=== PATIENT | male | born 1960 | race Caucasian/White ===

== ENCOUNTER 2017-11-14 20:41 | Emergency (ER) | payer BC ==
--- NOTE | 2017-11-14 20:49 | PDOC ---
History of Present Illness - General History Source: Patient Exam Limitations: No Limitations - History of Present Illness Initial Comments: A portion of this note was documented by scribe services under my direction. I have reviewed the details of the note, within reason, and agree with the documentation. The case summary and management plan written by me. Assessment and plan: This is a 57-year-old male who comes in complaining of frontal sinus headache. On evaluation was also noticed that patient's blood pressure was moderately elevated. Patient otherwise denied any symptoms of neurological complaints, chest pain or cardiac complaints. Patient was complaining of a intermittent cough but no shortness of breath. On evaluation it was noted the patient also had tenderness over palpation and percussion of his maxillary sinuses. Patient was started on azithromycin for probable acute sinusitis he was also given Catapres for his hypertension. Discussed with patient the importance of following up with a physician for his hypertension and taking his medications for the hypertension. 11/14/17 21:27 <Adonis Roche I - Last Filed: 11/14/17 21:27> - History of Present Illness Initial Comments: 11/14/17 21:16 The patient is a 57 year old male, with a significant past medical history of hypertension (stopped taking his 3 pills and Lasix about 6 months ago), who presents to the emergency department with a frontal headache, sinus congestion, cough, generalized weakness, and post-nasal drip today. The patient states his headache is focal to the front of his forehead and inferior eyebrows bilaterally. He reports the area just under his eyebrows is sensitive to touch. The patient reports his cough as nonproductive. He states he took mucinex, Tylenol, and a sinustab because it feels like my sinuses. Secondarily, the patient states he was unsure if the headache was because of his high blood pressure or his sinuses. He states he stopped his BP medications because it was making him slow to perform sexually. He denies chest pain, shortness of breath, and dizziness. He denies fever, chills, nausea, vomit, diarrhea and constipation. He denies dysuria, frequency, urgency and hematuria. PAST MEDICAL HISTORY: hypertension PAST SURGICAL HISTORY: no significant history FAMILY HISTORY: no pertinent history SOCIAL HISTORY: Pt lives with family and is employed. MEDICATIONS: reviewed ALLERGIES: As per nursing notes ROS General: (+) generalized weakness. No fevers or chills, no weight loss HEENT: (+) sinus congestion and post-nasal drip. No change in vision. No sore throat,. No ear pain CardioVascular: No chest pain or shortness of breath Respiratory: (+) cough. No wheezing. Gastrointestinal: no nausea, vomiting, diarrhea or constipation, No rectal bleeding Genitourinary: No dysuria, hematuria, or frequency Musculoskeletal: No joint or muscle pain or swelling Neurologic: (+) frontal headache, No vertigo, dizziness or loss of consciousness Psychiatric: nor depression Skin: No rashes or easy bruising Endocrine: no increased thirst or abnormal weight change Allergic: no skin or latex allergy All other systems reviewed and normal Physical Exam: General: Well-nourished well-developed individual, no acute distress HEENT: Throat: Normal, tonsils normal, no erythema or exudate Neck: Supple, no meningeal signs, no lymphadenopathy Eyes: (+) tender to palpation and percussion of the maxillary sinuses. Pupils equal reactive and round, extraocular motion intact Chest: Nontender to palpation Cardiac: S1-S2 normal, regular rate and rhythm, no murmurs rubs or gallops Respiratory: Lungs clear to auscultation bilateral Abdomen: Soft, nondistended, normal bowel sounds, nontender to palpation diffusely Extremities: Warm, dry, no cyanosis, clubbing, or edema Skin: No rashes Neuro: Alert and oriented x3, nonfocal exam, grossly intact, normal gait Psych: Normal mood and affect <Ashely Saavedra - Last Filed: 11/14/17 21:53> - General Chief Complaint: Respiratory Stated Complaint: HEADACHE BODY ACHE HYPERTENSION Time Seen by Provider: 11/14/17 20:48 Past History - Suicide/Smoking/Psychosocial Hx Smoking Status: No Smoking History: Former smoker Number of Cigarettes Smoked Daily: 0 <Adonis Roche I - Last Filed: 11/14/17 21:27> <Ashely Saavedra - Last Filed: 11/14/17 21:53> - Past Medical History Allergies/Adverse Reactions: Allergies Allergy/AdvReac Type Severity Reaction Status Date / Time Penicillins Allergy Swelling Verified 11/14/17 20:42 Home Medications: Ambulatory Orders Azithromycin 250 mg PO DAILY #4 tablet 12/27/17 *Physical Exam - Vital Signs Last Vital Signs Temp Pulse Resp BP Pulse Ox 98.7 F 117 H 20 198/138 99 11/14/17 20:41 11/14/17 20:41 11/14/17 20:41 11/14/17 20:41 11/14/17 20:41 <Ashely Saavedra - Last Filed: 11/14/17 21:53> *DC/Admit/Observation/Transfer <Adonis Roche I - Last Filed: 11/14/17 21:27> - Attestations Scribe Attestion: 11/14/17 21:16 Documentation prepared by Ashely Saavedra, acting as lpn medical assistant for Adonis Roche MD <Ashely Saavedra - Last Filed: 11/14/17 21:53> Diagnosis at time of Disposition: Essential hypertension Sinusitis Qualifiers: Sinusitis location: maxillary Chronicity: acute Recurrence: non-recurrent Qualified Code(s): J01.00 - Acute maxillary sinusitis, unspecified - Discharge Dispostion Disposition: HOME - Prescriptions Prescriptions: Azithromycin 250 mg PO DAILY #4 tablet - Referrals Referrals: Mp Nascimento MD [Staff Physician] - - Patient Instructions Additional Instructions: For the sinus infection take azithromycin 1 tablet a day for the next 4 days. For pain of the sinuses and headache take Tylenol or ibuprofen as directed on the bottle. It is important that you follow-up with a primary care doctor call Dr. Nascimento after the new year and get an appointment for as soon as possible.. Return to the emergency department immediately with ANY new, persistent or worsening symptoms. Continue any medications as previously prescribed by your physician. You should follow up with your primary doctor as soon as possible regarding today's emergency department visit. . Please make sure your doctor reviews the results of your emergency evaluation. Thank you for coming to the Emergency Department today for your care. It was a pleasure to see you today. Please note that your evaluation is INCOMPLETE until you follow-up with your doctor.
[2017-11-14 20:58] VITALS: PULSE 117; TEMP 98.7; BMI 39.0
[2017-11-14] MEDS ORDERED: KETOROLAC TROMETHAMINE 60 MG/2 ML VIAL IM ONE (21:14)
[2017-11-14] MEDS ORDERED: cloNIDine HCL 0.1 MG TABLET PO ONE (21:14)
[2017-11-14] MEDS ORDERED: AZITHROMYCIN 250 MG TABLET PO ONE (21:15)
[2017-11-14] MEDS ORDERED: KETOROLAC TROMETHAMINE 60 MG/2 ML VIAL ONE (21:18)
[2017-11-14] MEDS ORDERED: AZITHROMYCIN 250 MG TABLET ONE (21:18)
[2017-11-14 22:05] VITALS: BP 198/124
--- NOTE | 2017-11-14 22:39 | PDOC ---
*Physical Exam - Vital Signs Last Vital Signs Temp Pulse Resp BP Pulse Ox 98.7 F 117 H 20 198/124 99 11/14/17 20:41 11/14/17 20:41 11/14/17 20:41 11/14/17 22:05 11/14/17 20:41 ED Treatment Course - LABORATORY CBC & Chemistry Diagram: 11/14/17 22:46 11/14/17 22:46 - Medications Given in the ED: ED Medications Discontinued Medications Generic Name Dose Route Start Last Admin Trade Name Tan PRN Reason Stop Dose Admin Azithromycin 500 mg 11/14/17 21:15 11/14/17 21:26 Zithromax - PO 11/14/17 21:16 500 mg ONCE ONE Administration Clonidine 0.2 mg 11/14/17 21:14 11/14/17 21:27 Catapres - PO 11/14/17 21:15 0.2 mg ONCE ONE Administration Ketorolac Tromethamine 60 mg 11/14/17 21:14 11/14/17 21:26 Toradol Injection - IM 11/14/17 21:15 60 mg ONCE ONE Administration Progress Note - Progress Note Progress Note: Post my completion of the note that prior to patient being discharged patient began to feel nauseous and started vomiting here in the emergency room. We will do a more thorough evaluation of the patient. I will check CBC comp and lipase as well as cardiac enzymes + Check EKG + Give fluids and antiemetics +ct head and sinuses EKG shows a mild sinus tachycardia 107 a left anterior fascicular block, there is minimal voltage criteria for LVH, otherwise no acute ST-T wave changes Patient's head CT shows no acute intracranial pathology Sinus CT shows no acute sinusitis but there is a cyst in the left posterior maxillary sinus that could indicate dental infection that is underlying. Lab work shows a white count of 15,000 with a mild left shift. This is indicative also of some sort of underlying infection could be bronchitis as patient does have a cough that is productive of a little bit of yellowish green phlegm as well as the questionable dental issue. Patient's chemistries were unremarkable with the exception of a slightly low sodium of 129. Patient was given a liter of saline here in addition the patient was told to increase the sodium in his diet over the next several days until he sees a primary care doctor. Patient was given azithromycin here in the emergency room and will continue it Patient on reevaluation said that his headache is now resolved, he feels much better and is hungry and wants to go home and Dinner. Patient was given copies of his lab work as well as his CTs. Patient discharged home with his . *DC/Admit/Observation/Transfer Diagnosis at time of Disposition: Essential hypertension, Bronchitis Sinusitis Qualifiers: Sinusitis location: maxillary Chronicity: acute Recurrence: non-recurrent Qualified Code(s): J01.00 - Acute maxillary sinusitis, unspecified - Discharge Dispostion Disposition: HOME - Prescriptions Prescriptions: Azithromycin 250 mg PO DAILY #4 tablet - Referrals Referrals: Mp Nascimento MD [Staff Physician] - - Patient Instructions Additional Instructions: For the cough/bronchitis and possible sinus infection take azithromycin 1 tablet a day for the next 4 days. For pain of the sinuses and headache take Tylenol or ibuprofen as directed on the bottle. It is important that you follow-up with a primary care doctor call Dr. Nascimento after the new year and get an appointment for as soon as possible.. Return to the emergency department immediately with ANY new, persistent or worsening symptoms. Continue any medications as previously prescribed by your physician. You should follow up with your primary doctor as soon as possible regarding today's emergency department visit. . Please make sure your doctor reviews the results of your emergency evaluation. Thank you for coming to the Emergency Department today for your care. It was a pleasure to see you today. Please note that your evaluation is INCOMPLETE until you follow-up with your doctor. - Post Discharge Activity
[2017-11-14] MEDS ORDERED: ONDANSETRON 4 MG/2 ML VIAL IVPUSH ONE (22:48)
[2017-11-14] MEDS ORDERED: ONDANSETRON 4 MG/2 ML VIAL ONE (22:48)
[2017-11-14] MEDS ORDERED: SODIUM CHLORIDE 1,000 ML IV ONE (22:50)
[2017-11-14 22:52] LABS: MCH 28.9 pg (25.7-33.7); MCHC 33.3 g/dl (32.0-35.9); MEAN CELL VOLUME 86.6 fl (80-96); MEAN PLT VOLUME 8.7 fl (7.5-11.1); PLATELET COUNT 217 K/MM3 (134-434); RDW 12.9 % (11.9-15.9)
[2017-11-14 23:08] LABS: ALBUMIN 4.2 g/dl (3.5-5.0); ALK PHOS 67 U/L (32-92); ANION GAP 9 (8-16); CALCIUM 8.9 mg/dl (8.4-10.2); CO2 24 mmol/L (22-28); CREATININE 0.8 mg/dl (0.6-1.3); GLUCOSE,RANDOM 132 mg/dl (74-106); PLATELET ESTIMATE ADEQUATE; SGOT/AST 26 U/L (10-42); SGPT/ALT 25 U/L (10-40); TOT PROT 6.9 g/dl (6.4-8.3)
[2017-11-14 23:13] LABS: TROPONIN I (DFP) 0.04 ng/ml (0.03-0.50)
--- NOTE | 2017-11-15 09:34 | EKG ---
Test Reason : Blood Pressure : / mmHG Vent. Rate : 107 BPM Atrial Rate : 107 BPM P-R Int : 192 ms QRS Dur : 092 ms QT Int : 334 ms P-R-T Axes : 052 -45 022 degrees QTc Int : 445 ms SINUS TACHYCARDIA LEFT AXIS DEVIATION MINIMAL VOLTAGE CRITERIA FOR LVH, MAY BE NORMAL VARIANT ABNORMAL ECG NO PREVIOUS ECGS AVAILABLE Confirmed by AVERY LUCERO MD ([id number]) on 11/15/2017 9:33:48 AM Referred By: MD BERGERON Confirmed By:AVERY LUCERO MD
== END 2017-11-15 01:00 | disposition home or self-care (01) ==
LOC: FER 20:41
PROC: 3E0233Z Introduction of Anti-inflammatory into Muscle, Percutaneous Approach (ICD-10-PCS; principal; 2017-11-14)
PROC: 3E033GC Introduction of Other Therapeutic Substance into Peripheral Vein, Percutaneous Approach (ICD-10-PCS; 2017-11-14)
PROC: 3E0337Z Introduction of Electrolytic and Water Balance Substance into Peripheral Vein, Percutaneous Approach (ICD-10-PCS; 2017-11-14)
DX: J01.00 Acute maxillary sinusitis, unspecified (principal); I10 Essential (primary) hypertension
CPT/HCPCS: 36415; 70450-TC; 70486-TC; 80053; 82550; 83690; 84484; 85025; 93005; 99284-25

== ENCOUNTER 2022-04-07 12:41 | Inpatient (IN) | payer BC ==
[2022-04-07 13:05] VITALS: BMI 31.4
[2022-04-07] MEDS ORDERED: SODIUM CHLORIDE 0.9% 500 ML INFUS.BAG IV ONE (13:38)
[2022-04-07 14:09] LABS: BASO % 0.5 % (0-2.0); EOS % 0.3 % (0-4.5); HEMATOCRIT 51.9 % (35.4-49); HEMOGLOBIN 17.5 GM/dL (11.7-16.9); MCH 28.9 pg (25.7-33.7); MCHC 33.6 g/dl (32.0-35.9); MONO % 4.6 % (3.8-10.2); NEUT % 81.6 % (42.8-82.8); PLATELET COUNT 309 10^3/uL (134-434); RBC 6.03 M/mm3 (4.00-5.60); RDW 14.3 % (11.9-15.9); WHITE BLOOD COUNT 11.4 K/mm3 (4.0-10.0)
[2022-04-07 14:25] LABS: CHLORIDE 102 mmol/L (98-107); SODIUM 135 mmol/L (136-145)
[2022-04-07 14:27] LABS: ALBUMIN 4.1 g/dl (3.4-5.0); BLOOD UREA NITROGEN 24.6 mg/dL (7-18); CALCIUM 10.1 mg/dL (8.5-10.1); CO2 23 mmol/L (21-32); GLUCOSE,RANDOM 78 mg/dL (74-106); MAGNESIUM 2.1 mg/dL (1.8-2.4)
[2022-04-07 14:30] LABS: CREATININE 1.7 mg/dL (0.55-1.3); SGOT/AST 56 U/L (15-37)
[2022-04-07 14:32] LABS: BILIRUBIN,TOTAL 1.4 mg/dL (0.2-1); TOT PROT 7.7 g/dl (6.4-8.2)
[2022-04-07 14:33] LABS: ALK PHOS 74 U/L (45-117); ANION GAP 10 MMOL/L (8-16); SGPT/ALT 26 U/L (13-61)
[2022-04-07 18:39] LABS: CHLORIDE 103 mmol/L (98-107); SODIUM 138 mmol/L (136-145)
[2022-04-07 18:40] LABS: CALCIUM 9.2 mg/dL (8.5-10.1)
[2022-04-07 18:41] LABS: ALBUMIN 3.5 g/dl (3.4-5.0); ANION GAP 14 MMOL/L (8-16); BLOOD UREA NITROGEN 25.2 mg/dL (7-18); CO2 21 mmol/L (21-32); GLUCOSE,RANDOM 77 mg/dL (74-106)
[2022-04-07 18:44] LABS: CREATININE 1.4 mg/dL (0.55-1.3); SGOT/AST 14 U/L (15-37); SGPT/ALT 18 U/L (13-61)
[2022-04-07 18:46] LABS: BILIRUBIN,TOTAL 1.1 mg/dL (0.2-1); TOT PROT 6.3 g/dl (6.4-8.2)
[2022-04-07 18:47] LABS: ALK PHOS 66 U/L (45-117)
[2022-04-07] MEDS: ATORVASTATIN CA 80 MG TABLET (FP) PO SCH (21:37)
[2022-04-07] MEDS: APIXABAN 5 MG TABLET PO SCH (21:37)
[2022-04-07] MEDS: METOPROLOL TARTRATE 50 MG TABLET (FP) PO SCH (21:38)
[2022-04-08 07:26] LABS: BASO % 0.5 % (0-2.0); EOS % 1.1 % (0-4.5); HEMATOCRIT 48.6 % (35.4-49); HEMOGLOBIN 16.2 GM/dL (11.7-16.9); LYMPH % 19.8 % (8-40); MCH 28.7 pg (25.7-33.7); MCHC 33.3 g/dl (32.0-35.9); MEAN CELL VOLUME 86.3 fl (80-96); MEAN PLT VOLUME 9.2 fl (7.5-11.1); MONO % 6.2 % (3.8-10.2); NEUT % 72.4 % (42.8-82.8); PLATELET COUNT 248 10^3/uL (134-434); RBC 5.63 M/mm3 (4.00-5.60); RDW 14.5 % (11.9-15.9); WHITE BLOOD COUNT 9.8 K/mm3 (4.0-10.0)
[2022-04-08] MEDS: APIXABAN 5 MG TABLET PO SCH ×2 (09:55→21:47)
[2022-04-08] MEDS: METOPROLOL TARTRATE 50 MG TABLET (FP) PO SCH (09:56)
[2022-04-08] MEDS ORDERED: ASPIRIN 81 MG CHEWABLE TABLETS PO SCH (10:00)
[2022-04-08] MEDS ORDERED: amLODIPine BESYLATE 10 MG TABLET (FP) PO SCH (10:30)
[2022-04-08] MEDS ORDERED: NIFEdipine E.R. 30 MG TABLET PO SCH (15:00)
[2022-04-08] MEDS ORDERED: NIFEdipine E.R. 30 MG TABLET PO ONE (18:00)
[2022-04-08] MEDS: ATORVASTATIN CA 80 MG TABLET (FP) PO SCH (21:47)
[2022-04-09 08:51] VITALS: TEMP 98.8
[2022-04-09] MEDS: APIXABAN 5 MG TABLET PO SCH (09:24)
[2022-04-09] MEDS ORDERED: NIFEdipine E.R 60 MG TABLET PO SCH (10:00)
[2022-04-09 11:58] VITALS: BP 157/118; PULSE 98
[2022-04-09] MEDS ORDERED: APIXABAN 5 MG TABLET PO ONE (12:30)
== END 2022-04-09 13:45 | disposition home or self-care (01) | DRG 309 ==
LOC: JER 12:41 → JERBED 14:10 → J4W 18:17
PROVIDERS: ADMIT Internal Medicine; ATTEND Internal Medicine
DX: I48.0 Paroxysmal atrial fibrillation (principal); I24.8 Other forms of acute ischemic heart disease; I10 Essential (primary) hypertension; R42 Dizziness and giddiness
CPT/HCPCS: 0241U-QW; 36415; 71045-TC-FY; 80053; 83735; 84132; 84439; 84443; 84484; 85025; 93005; 93010; 99285-25; G0378

== ENCOUNTER 2022-08-17 18:38 | Emergency (ER) | payer BC ==
[2022-08-17 19:02] VITALS: BP 164/94; PULSE 73; RESP 16; TEMP 98.7; BMI 28.7
[2022-08-17 19:14] LABS: HEMATOCRIT 38.6 % (35.4-49); HEMOGLOBIN 13.6 G/dL (11.7-16.9); MCH 31.6 pg (25.7-33.7); MCHC 35.3 g/dl (32.0-35.9); MEAN CELL VOLUME 89.5 fl (80-96); MEAN PLT VOLUME 8.9 fl (7.5-11.1); PLATELET COUNT 243.2 10^3/uL (134-434); RBC 4.31 10^6/uL (4.00-5.60); RDW 14.5 % (11.9-15.9); WHITE BLOOD COUNT 12.2 10^3/uL (4.0-10.8)
[2022-08-17 19:35] LABS: ALBUMIN 4.1 g/dl (3.4-5.0); BILIRUBIN,TOTAL 1.1 mg/dl (0.2-1); CALCIUM 9.1 mg/dl (8.5-10); CREATININE 1.5 mg/dl (0.55-1.3); TOT PROT 6.9 g/dl (6.4-8.2)
[2022-08-17 20:20] LABS: PLATELET ESTIMATE ADEQUATE
== END 2022-08-17 20:54 | disposition home or self-care (01) ==
LOC: FER 18:38 → SUPCPDRO 18:38 → FER 20:54
DX: R33.9 Retention of urine, unspecified (principal)
CPT/HCPCS: 36415; 74176-TC; 80053; 81003; 81015; 85027; 87086; 99285-25

== ENCOUNTER 2023-09-22 20:10 | Emergency (ER) | payer BC ==
[2023-09-22 20:20] VITALS: BP 150/96; PULSE 61; RESP 18; TEMP 98; BMI 29.5
[2023-09-22] MEDS ORDERED: LIDOCAINE HCL 2% JELLY 10 ML CARTRIDGE ONE (21:25)
[2023-09-22] MEDS ORDERED: LIDOCAINE HCL 2% JELLY 10 ML CARTRIDGE UR ONE (22:20)
[2023-09-22] MEDS ORDERED: CIPROFLOXACIN 500 MG TABLET (RESTRICTED TO ID) PO ONE (22:37)
[2023-09-22] MEDS ORDERED: CIPROFLOXACIN 250 MG TABLET (RESTRICTED TO ID) PO ONE (22:38)
== END 2023-09-22 22:57 | disposition home or self-care (01) ==
LOC: FER 20:10
PROC: 0T9B70Z Drainage of Bladder with Drainage Device, Via Natural or Artificial Opening (ICD-10-PCS; principal; 2023-09-22)
DX: R33.9 Retention of urine, unspecified (principal); R31.9 Hematuria, unspecified
CPT/HCPCS: 81003; 81015; 87086; 99283-25

== ENCOUNTER 2023-10-08 22:13 | Emergency (ER) | payer BC ==
[2023-10-08 22:37] VITALS: BP 146/89; PULSE 67; RESP 18; TEMP 99; BMI 29.8
[2023-10-08] MEDS ORDERED: LIDOCAINE HCL 2% JELLY 10 ML CARTRIDGE ONE ×2 (22:51→23:36)
[2023-10-09 01:49] LABS: POTASSIUM 3.7 mmol/L (3.5-5.1)
[2023-10-09 01:50] LABS: CALCIUM 8.8 mg/dL (8.5-10.1)
[2023-10-09 01:51] LABS: BLOOD UREA NITROGEN 24.2 mg/dL (7-18)
[2023-10-09 01:55] LABS: CREATININE 1.3 mg/dL (0.55-1.3)
== END 2023-10-09 01:58 | disposition home or self-care (01) ==
LOC: FER 22:13
PROC: 0T9B70Z Drainage of Bladder with Drainage Device, Via Natural or Artificial Opening (ICD-10-PCS; principal; 2023-10-08)
DX: T83.9XXA Unspecified complication of genitourinary prosthetic device, implant and graft, initial encounter (principal)
CPT/HCPCS: 36415; 80048; 99283-25

== ENCOUNTER 2023-12-17 20:00 | Emergency (ER) | payer BC ==
[2023-12-17 20:07] VITALS: BP 144/78; PULSE 72; RESP 16; TEMP 98.5; BMI 29.7
[2023-12-17 21:35] LABS: HEMATOCRIT 40.5 % (35.4-49); HEMOGLOBIN 14.1 G/dL (11.7-16.9); MCH 31.3 pg (25.7-33.7); MCHC 34.9 g/dl (32.0-35.9); MEAN CELL VOLUME 89.9 fl (80-96); MEAN PLT VOLUME 9.6 fl (7.5-11.1); PLATELET COUNT 205.6 10^3/uL (134-434); RBC 4.51 10^6/uL (4.00-5.60); RDW 14.5 % (11.9-15.9); WHITE BLOOD COUNT 8.4 10^3/uL (4.0-10.8)
[2023-12-17 21:50] LABS: ALBUMIN 4.3 g/dl (3.4-5.0); BILIRUBIN,TOTAL 0.8 mg/dl (0.2-1); CALCIUM 9.3 mg/dl (8.5-10.1); CREATININE 1.2 mg/dl (0.6-1.3); POTASSIUM 3.5 mmol/L (3.5-5.1); TOT PROT 6.3 g/dl (6.4-8.2)
== END 2023-12-17 22:42 | disposition home or self-care (01) ==
LOC: FER 20:00
DX: R07.89 Other chest pain (principal); R06.02 Shortness of breath; F41.9 Anxiety disorder, unspecified
CPT/HCPCS: 36415; 71045-TC-FY; 80053; 82550; 83735; 84484; 85027; 93005; 99285-25

== ENCOUNTER 2024-01-19 22:29 | Emergency (ER) | payer BC ==
[2024-01-19 22:35] VITALS: BP 157/80; PULSE 58; RESP 17; TEMP 97.9; BMI 29.5
[2024-01-19 23:12] LABS: HEMOGLOBIN 13.9 G/dL (11.7-16.9); MCH 31.4 pg (25.7-33.7); MCHC 34.8 g/dl (32.0-35.9); MEAN CELL VOLUME 90.2 fl (80-96); MEAN PLT VOLUME 9.7 fl (7.5-11.1); RBC 4.43 10^6/uL (4.00-5.60); RDW 14.5 % (11.9-15.9); WHITE BLOOD COUNT 7.5 10^3/uL (4.0-10.8)
[2024-01-19 23:21] LABS: INR 2.4 (0.83-1.09); PROTHROMBIN TIME (PATIENT) 27.6 SEC (9.7-13.0)
[2024-01-19 23:29] LABS: ALBUMIN 4.3 g/dl (3.4-5.0); BILIRUBIN,TOTAL 0.9 mg/dl (0.2-1); CALCIUM 9.3 mg/dl (8.5-10.1); CREATININE 1.3 mg/dl (0.6-1.3); TOT PROT 6.2 g/dl (6.4-8.2)
[2024-01-20] MEDS ORDERED: metoPROLOL SUCCINATE 25 MG TAB.SR.24H (FP) PO ONE (00:13)
[2024-01-20 00:14] LABS: BLOOD UREA NITROGEN 22.7 mg/dL (7-18)
[2024-01-20] MEDS: metoPROLOL SUCCINATE 25 MG TAB.SR.24H (FP) PO ONE (00:23)
== END 2024-01-20 00:36 | disposition home or self-care (01) ==
LOC: FER 22:29
DX: I48.0 Paroxysmal atrial fibrillation (principal)
CPT/HCPCS: 36415; 71045-TC-FY; 80053; 84484; 85027; 85610; 93005; 99285-25

== ENCOUNTER 2024-03-16 05:20 | Emergency (ER) | payer BC ==
[2024-03-16 05:31] VITALS: BP 137/83; PULSE 66; RESP 16; TEMP 97.5; BMI 29.5
[2024-03-16] MEDS ORDERED: LIDOCAINE HCL 2% JELLY 10 ML CARTRIDGE ONE (05:34)
[2024-03-16] MEDS: LIDOCAINE HCL 2% JELLY 10 ML CARTRIDGE UR ONE (05:36)
[2024-03-16 08:12] LABS: PH,URINE 5.5 (5.0-8.0); URINE APPEARANCE CLEAR; URINE BILIRUBIN NEGATIVE (NEGATIVE); URINE COLOR YELLOW; URINE GLUCOSE (UA) NEGATIVE (NEGATIVE); URINE KETONE NEGATIVE (NEGATIVE); URINE LEUK ESTERASE NEGATIVE (NEGATIVE); URINE NITRITE NEGATIVE (NEGATIVE); URINE PROTEIN NEGATIVE (NEGATIVE); URINE UROBILINOGEN 0.2 mg/dL (0.2-1.0)
== END 2024-03-16 08:16 | disposition home or self-care (01) ==
LOC: FER 05:20
PROC: 0T9B70Z Drainage of Bladder with Drainage Device, Via Natural or Artificial Opening (ICD-10-PCS; principal; 2024-03-16)
DX: N40.1 Benign prostatic hyperplasia with lower urinary tract symptoms (principal); R33.8 Other retention of urine
CPT/HCPCS: 81003; 87086; 99283-25

== ENCOUNTER 2024-03-27 04:11 | Day surgery (SDC) | payer BC ==
[2024-03-26 14:46] VITALS: BMI 28.5
[2024-03-27] MEDS ORDERED: PROPOFOL 20 ML ONE ×2 (07:27→08:26)
[2024-03-27] MEDS ORDERED: FENTANYL CITRATE/PF 50 MCG/ML VIAL ONE ×6 (07:27→09:09)
[2024-03-27] MEDS ORDERED: MIDAZOLAM HCL 2 MG/2 ML SINGLE DOSE VIAL ONE (07:27)
[2024-03-27] MEDS ORDERED: ceFAZolin SODIUM 1 GM VIAL ONE (07:28)
[2024-03-27] MEDS ORDERED: LIDOCAINE HCL/PF 2% SDV 5ML VIAL ONE (07:28)
[2024-03-27] MEDS ORDERED: SODIUM CHLORIDE 0.9% P/F 10 ML VIAL IJ ONE (07:28)
[2024-03-27] MEDS ORDERED: VANCOMYCIN 1,000 MG VIAL (RESTRICTED TO ID ONLY) ONE (07:37)
[2024-03-27] MEDS: VANCOMYCIN 1,000 MG VIAL (RESTRICTED TO ID ONLY) IVPB ONE (07:41)
[2024-03-27] MEDS ORDERED: ONDANSETRON 4 MG/2 ML VIAL ONE ×2 (07:49→09:18)
[2024-03-27] MEDS ORDERED: DEXAMETHASONE SOD PHOSPHATE 4 MG/1 ML VIAL ONE (07:49)
[2024-03-27] MEDS ORDERED: oxyCODONE HCL 5 MG TABLET PO PRN (08:32)
[2024-03-27] MEDS ORDERED: METOPROLOL TARTRATE 5 MG/5 ML VIAL ONE (08:38)
[2024-03-27] MEDS ORDERED: DEXTROSE 5%-0.45% SALINE 1,000 ML IV SCH (08:45)
[2024-03-27] MEDS ORDERED: PROMETHAZINE HCL 25 MG/1 ML VIAL IVPB PRN (08:48)
[2024-03-27] MEDS ORDERED: LACTATED RINGERS SOLUTION 1,000 ML IV SCH (09:00)
[2024-03-27] MEDS: ONDANSETRON 4 MG/2 ML VIAL IVPUSH PRN (09:18)
[2024-03-27 10:17] VITALS: PULSE 72
[2024-03-27] MEDS ORDERED: oxyCODONE HCL 5 MG TABLET ONE (11:14)
[2024-03-27] MEDS: oxyCODONE HCL 5 MG TABLET PO PRN (11:15)
[2024-03-27 12:25] VITALS: BP 130/81; RESP 20; TEMP 97.2
== END 2024-03-27 12:49 | disposition home or self-care (01) ==
LOC: JASU-SURG 04:11
PROVIDERS: ATTEND Urology
PROC: 0VT08ZZ Resection of Prostate, Via Natural or Artificial Opening Endoscopic (ICD-10-PCS; principal; 2024-03-27 07:30)
DX: N40.1 Benign prostatic hyperplasia with lower urinary tract symptoms (principal); R33.8 Other retention of urine
CPT/HCPCS: 88305-TC; 94760

== ENCOUNTER 2024-06-03 01:22 | Emergency (ER) | payer BC ==
[2024-06-03 01:31] VITALS: PULSE 62; RESP 17; TEMP 97.7; BMI 29.8
[2024-06-03] MEDS ORDERED: LIDOCAINE HCL 2% JELLY 10 ML CARTRIDGE ONE (01:59)
[2024-06-03 02:31] VITALS: BP 170/98
[2024-06-03 02:45] LABS: EPI CELLS 6 /uL (0-25.1); HYALINE CASTS 1 /uL (0-3.1); URINE APPEARANCE CLEAR; URINE BACTERIA 9 /uL (0-1359); URINE BILIRUBIN NEGATIVE (NEGATIVE); URINE COLOR YELLOW; URINE GLUCOSE (UA) NEGATIVE (NEGATIVE); URINE KETONE NEGATIVE (NEGATIVE); URINE LEUK ESTERASE 2+ (NEGATIVE); URINE NITRITE NEGATIVE (NEGATIVE); URINE PROTEIN NEGATIVE (NEGATIVE); URINE RBC 23 /uL (0-23.9); URINE WBC 157 /uL (0-25.8)
== END 2024-06-03 02:36 | disposition home or self-care (01) ==
LOC: FER 01:22
PROC: 0T9B70Z Drainage of Bladder with Drainage Device, Via Natural or Artificial Opening (ICD-10-PCS; principal; 2024-06-03)
DX: R39.15 Urgency of urination (principal); F41.9 Anxiety disorder, unspecified
CPT/HCPCS: 81003; 87086; 99284-25

== ENCOUNTER 2024-07-11 02:12 | Emergency (ER) | payer BC ==
[2024-07-11 02:21] VITALS: BP 119/70; PULSE 86; RESP 18; TEMP 97.7; BMI 29.9
== END 2024-07-11 03:14 | disposition home or self-care (01) ==
LOC: FER 02:12
DX: R34 Anuria and oliguria (principal)
CPT/HCPCS: 99282-25

== ENCOUNTER 2024-07-15 04:25 | Day surgery (SDC) | payer BC ==
[2024-07-11 16:40] VITALS: BMI 29.9
[2024-07-15] MEDS: ceFAZolin SODIUM 1 GM VIAL IVPB ONE
[2024-07-15] MEDS ORDERED: MIDAZOLAM HCL 2 MG/2 ML SINGLE DOSE VIAL ONE (07:38)
[2024-07-15] MEDS ORDERED: PROPOFOL 40 ML ONE (07:39)
[2024-07-15] MEDS ORDERED: oxyCODONE HCL 5 MG TABLET PO PRN (08:13)
[2024-07-15] MEDS ORDERED: DEXTROSE 5%-0.45% SALINE 1,000 ML IV SCH (08:15)
[2024-07-15] MEDS ORDERED: ONDANSETRON 4 MG/2 ML VIAL IVPUSH PRN (08:18)
[2024-07-15] MEDS ORDERED: LACTATED RINGERS SOLUTION 1,000 ML IV SCH (08:30)
[2024-07-15 09:23] VITALS: TEMP 97.3
[2024-07-15 09:53] VITALS: RESP 18
[2024-07-15 10:30] VITALS: BP 142/82; PULSE 79
== END 2024-07-15 10:35 | disposition home or self-care (01) ==
LOC: JASU-SURG 04:25
PROVIDERS: ATTEND Urology
PROC: 0VT08ZZ Resection of Prostate, Via Natural or Artificial Opening Endoscopic (ICD-10-PCS; principal; 2024-07-15 07:30)
DX: N40.1 Benign prostatic hyperplasia with lower urinary tract symptoms (principal); R33.9 Retention of urine, unspecified
CPT/HCPCS: 88305-TC; 94760

== ENCOUNTER 2024-08-30 17:58 | Emergency (ER) | payer BC ==
[2024-08-30 18:02] VITALS: BP 135/82; PULSE 61; RESP 16; TEMP 98.2; BMI 29.9
== END 2024-08-30 20:25 | disposition home or self-care (01) ==
LOC: FER 17:58
DX: R33.9 Retention of urine, unspecified (principal); R14.0 Abdominal distension (gaseous)
CPT/HCPCS: 81003; 81015; 87086; 99283-25

== ENCOUNTER 2024-09-18 18:31 | Emergency (ER) | payer BC ==
[2024-09-18 18:37] VITALS: BP 162/98; PULSE 64; RESP 20; TEMP 98.2; BMI 31.1
[2024-09-18 20:57] LABS: HIV INTERPRETATION NEGATIVE (NEGATIVE)
== END 2024-09-18 20:08 | disposition home or self-care (01) ==
LOC: FER 18:31
DX: R30.0 Dysuria (principal)
CPT/HCPCS: 36415; 86803; 87389; 99283-25